=== PATIENT | female | born 1975 | race Caucasian/White ===

== ENCOUNTER 2017-04-11 17:17 | Emergency (ER) | payer OTHER ==
[~2017-04-11] VITALS: Ht 172.7 cm; Wt 84.5 kg
[~2017-04-11 17:17] MED LIST: AMIT50TA27 PO; CALC500T62 PO; DIVA500T52 PO; GABA-529 PO; HYD50 PO; IBUP-1547 PO; LEVO50CA2 PO; LORA1TAB3 PO; RISP1 PO; SERT100T12 PO
[2017-04-11] MEDS ORDERED: FLUO15CR2 TP (17:42)
[2017-04-11] MEDS ORDERED: DIPH25 PO (17:42)
[2017-04-11] MEDS ORDERED: CLOM25 PO (17:42)
[2017-04-11] MEDS ORDERED: CHLO25 PO (17:42)
[2017-04-11] MEDS ORDERED: GABA-529 PO (17:46)
[2017-04-11] MEDS ORDERED: LEVO75 PO (17:46)
[2017-04-11] MEDS ORDERED: MUPIROCIN CALCIUM 2% 22 GM OINTMENT TP ONE (19:15)
[2017-04-11 20:19] VITALS: BP 121/80
== END 2017-04-11 20:20 | disposition home or self-care (01) ==
LOC: EMS 17:18
DX: L89.893 Pressure ulcer of other site, stage 3 (principal); L89.892 Pressure ulcer of other site, stage 2; E03.9 Hypothyroidism, unspecified; Z91.018 Allergy to other foods
CPT/HCPCS: 11042; 99284

== ENCOUNTER 2017-04-15 19:18 | Emergency (ER) | payer OTHER ==
[~2017-04-15] VITALS: Ht 170.2 cm; Wt 84.0 kg
[~2017-04-15 19:18] MED LIST changes: +CHLO25 PO; +CLOM25 PO; +DIPH25 PO; +FLUO15CR2 TP; -IBUP-1547 PO; -LEVO50CA2 PO; +LEVO75 PO
[2017-04-15 19:59] VITALS: BP 118/80
== END 2017-04-15 20:37 | disposition home or self-care (01) ==
LOC: EMS 19:19
DX: L89.892 Pressure ulcer of other site, stage 2 (principal); E03.9 Hypothyroidism, unspecified; Z91.018 Allergy to other foods; Z79.899 Other long term (current) drug therapy
CPT/HCPCS: 99283

== ENCOUNTER 2017-10-02 10:15 | Emergency (ER) | payer OTHER ==
[~2017-10-02] VITALS: Ht 177.8 cm; Wt 77.2 kg
[2017-10-02 10:59] VITALS: BP 127/71
== END 2017-10-02 11:59 | disposition home or self-care (01) ==
LOC: EMS 10:16
DX: B86 Scabies (principal); I10 Essential (primary) hypertension; E03.9 Hypothyroidism, unspecified; Z91.018 Allergy to other foods
CPT/HCPCS: 99283

== ENCOUNTER 2021-07-06 19:51 | Inpatient (IN) | payer OTHER ==
[~2021-07-06] VITALS: Ht 167.6 cm; Wt 74.5 kg
[~2021-07-06 19:51] MED LIST changes: -CHLO25 PO; +CHLO25TA69 PO; +GABA-1216 PO; +LORA-1000 PO; -LORA1TAB3 PO; -RISP1 PO; +RISP1TAB48 PO; +SERT-440 PO; -SERT100T12 PO
[2021-07-06] MEDS ORDERED: DOCU-270 PO (20:25)
[2021-07-06] MEDS ORDERED: DIVA-112 PO (20:25)
[2021-07-06] MEDS ORDERED: ZINC220C14 PO (20:25)
[2021-07-06] MEDS ORDERED: LEVO100 PO (20:25)
[2021-07-06] MEDS ORDERED: LACT30L PO (20:25)
[2021-07-06 23:05] LABS: HEMATOCRIT 42.9 % (36-46); HEMOGLOBIN 13.9 g/dL (12.0-16.0); MEAN CORPUSCULAR HEMOGLOBIN 30.7 pg (26.0-34.0); MEAN CORPUSCULAR HGB CONC 32.5 G/dL (31.0-37.0); MEAN CORPUSCULAR VOLUME 94 fL (80-100); PLATELET COUNT (AUTO) 294 K/uL (150-450); RED BLOOD CELL COUNT(AUTO) 4.55 MIL/uL (4.00-5.20); RED CELL DISTRIBUTION WIDTH 14.8 % (11.5-14.5)
[2021-07-06 23:21] LABS: ANION GAP 15 mmol/L (8-16); CALCIUM, TOTAL 8.6 mg/dL (8.8-10.5); CARBON DIOXIDE 22 mmol/L (22-29); CHLORIDE 102 mmol/L (98-107); CREATININE 1.51 mg/dL (0.60-1.30); GLOMERULAR FILTR. RATE CALC 37 mL/min (>60); GLUCOSE,RANDOM 249 mg/dL (70-110); POTASSIUM 4.2 mmol/L (3.5-5.1); SODIUM SERUM 139 mmol/L (136-145); UREA NITROGEN, BLOOD 20 mg/dL (7-18)
[2021-07-06 23:24] LABS: INR 1.4 (0.9-1.1); PROTHROMBIN TIME 14.9 SEC (9.4-11.6)
[2021-07-06 23:38] LABS: ALANINE AMINOTRANSFERASE 50 U/L (12-78); ALKALINE PHOSPHATASE 120 U/L (46-116); ASPARTATE AMINOTRANSFERASE 26 U/L (15-37); BILIRUBIN,TOTAL 0.9 mg/dL (0.1-1.0); HCG,QUANTITATIVE < 1 mIU/mL (0-6); LIPASE 41 U/L (73-393); TOTAL PROTEIN, SERUM 6.9 g/dL (6.4-8.2)
[2021-07-06 23:58] LABS: BAND NEUTROPHILS % (MANUAL) 6 % (0-5); LYMPHOCYTES % (MANUAL) 5 % (22-44); MONOCYTES % (MANUAL) 30 % (2-9); SEGMENTED NEUTROPHILS % 59 % (40-70)
[2021-07-07] MEDS ORDERED: SODIUM CHLORIDE 0.9% 500 ML IV ONE
[2021-07-07] MEDS ORDERED: MetroNIDAZOLE 500 MG/NACL 100 ML IV ONE (02:45)
[2021-07-07] MEDS ORDERED: CIPROFLOXACIN 400 MG/D5% WATER 200 ML IV ONE (02:45)
[2021-07-07 03:11] LABS: APPEARANCE,URINE CLOUDY (CLEAR); GLUCOSE, URINE (UA) NEGATIVE (NEGATIVE); KETONES,URINE TRACE mg/dL (NEGATIVE); LEUKOCYTE ESTERASE ,URINE SMALL (NEGATIVE); NITRATE,URINE POSITIVE (NEGATIVE); OCCULT BLOOD,URINE TRACE (NEGATIVE); PROTEIN,URINE NEGATIVE (NEGATIVE)
[2021-07-07 03:28] LABS: BILIRUBIN,URINE PRELIM. POSITIVE (NEGATIVE)
[2021-07-07] MEDS ORDERED: DEXTROSE 50%-WATER 25 GM/50 ML SYRINGE IVP PRN (03:30)
[2021-07-07] MEDS ORDERED: SODIUM CHLORIDE 0.9% 1,250 ML IV ONE (03:30)
[2021-07-07] MEDS ORDERED: *CLINICAL-LEVOFLOXACIN IVPB DOSING CLINICAL ONE (03:30)
[2021-07-07] MEDS ORDERED: INSULIN LISPRO 100 UNITS/ML SQ PRN (03:30)
[2021-07-07 03:38] LABS: AMORPHOUS SEDIMENT,UR Few /LPF (None Seen); BACTERIA,URINE Moderate /HPF (None Seen); RBC,URINE 0-2 /HPF (0-2); SQUAMOUS EPITHELIAL CELL,UR Few /LPF (None Seen)
[2021-07-07 03:43] LABS: CALCIUM OXALATE CRYSTALS,UR Few /LPF (None Seen)
[2021-07-07] MEDS: SODIUM CHLORIDE 0.9% 1,000 ML IV SCH ×2 (05:14→15:14)
[2021-07-07] MEDS: LEVOTHYROXINE SODIUM 100 MCG TABLET PO SCH (06:13)
[2021-07-07 06:43] LABS: COVID AG,FIA SOURCE NASOPHARYNGEAL
[2021-07-07 09:15] VITALS: BP 111/64
[2021-07-07] MEDS: MetroNIDAZOLE 500 MG/NACL 100 ML IV SCH ×2 (11:39→20:04)
[2021-07-07 14:57] VITALS: BP 123/75
[2021-07-07 15:21] LABS: GLUCOMETER DEV NAME(LOC) 6N.1; GLUCOSE,POINT OF CARE 71 MG/DL (70-110)
[2021-07-07 15:22] LABS: GLUCOMETER DEV NAME(LOC) 6N.1; GLUCOSE,POINT OF CARE 78 MG/DL (70-110)
[2021-07-07] MEDS: PANTOPRAZOLE SODIUM 40 MG/VIAL IVP SCH (15:41)
[2021-07-07] MEDS ORDERED: LEVOFLOXACIN 500 MG/D5% WATER 100 ML IV SCH (16:00)
[2021-07-07 16:27] LABS: HEMATOCRIT 39.2 % (36-46); HEMOGLOBIN 12.6 g/dL (12.0-16.0); MEAN CORPUSCULAR HEMOGLOBIN 30.5 pg (26.0-34.0); MEAN CORPUSCULAR HGB CONC 32.2 G/dL (31.0-37.0); MEAN CORPUSCULAR VOLUME 95 fL (80-100); RED BLOOD CELL COUNT(AUTO) 4.15 MIL/uL (4.00-5.20); RED CELL DISTRIBUTION WIDTH 14.8 % (11.5-14.5)
[2021-07-07 16:37] LABS: ALANINE AMINOTRANSFERASE 34 U/L (12-78); ALBUMIN 2.4 g/dL (3.4-5.0); ALKALINE PHOSPHATASE 90 U/L (46-116); ANION GAP 9 mmol/L (8-16); ASPARTATE AMINOTRANSFERASE 17 U/L (15-37); BILIRUBIN,TOTAL 0.5 mg/dL (0.1-1.0); CALCIUM, TOTAL 7.8 mg/dL (8.8-10.5); CARBON DIOXIDE 23 mmol/L (22-29); CHLORIDE 106 mmol/L (98-107); CREATININE 0.84 mg/dL (0.60-1.30); GLOMERULAR FILTR. RATE CALC > 60 mL/min (>60); GLUCOSE,RANDOM 106 mg/dL (70-110); POTASSIUM 3.7 mmol/L (3.5-5.1); SODIUM SERUM 138 mmol/L (136-145); TOTAL PROTEIN, SERUM 5.5 g/dL (6.4-8.2); UREA NITROGEN, BLOOD 13 mg/dL (7-18)
[2021-07-07 16:42] LABS: PLATELET COUNT (AUTO) 214 K/uL (150-450)
[2021-07-07 16:45] LABS: BAND NEUTROPHILS % (MANUAL) 17 % (0-5); BLASTS, MANUAL % 1 (0-0); LYMPHOCYTES % (MANUAL) 14 % (22-44); MONOCYTES % (MANUAL) 23 % (2-9); SEGMENTED NEUTROPHILS % 45 % (40-70)
[2021-07-07 16:47] LABS: WBC MORPHOLOGY TOXIC VACUOLATION
[2021-07-07] MEDS: CefTRIAXone 1 GM/DEXTROSE 50 ML IV SCH (16:55)
[2021-07-07 17:56] LABS: GLUCOMETER DEV NAME(LOC) 6S.1; GLUCOSE,POINT OF CARE 96 MG/DL (70-110)
[2021-07-07 19:33] VITALS: BP 122/75
[2021-07-07] MEDS: LACTOBACILLUS ACIDOPHILUS/BULGARICUS TABLET PO SCH (20:04)
[2021-07-08 00:09] LABS: GLUCOMETER DEV NAME(LOC) 6N.1; GLUCOSE,POINT OF CARE 113 MG/DL (70-110)
[2021-07-08] MEDS ORDERED: ACETAMINOPHEN 325 MG TABLET PO PRN (00:45)
[2021-07-08] MEDS: SODIUM CHLORIDE 0.9% 1,000 ML IV SCH ×2 (03:47→09:54)
[2021-07-08] MEDS: MetroNIDAZOLE 500 MG/NACL 100 ML IV SCH ×3 (03:47→19:47)
[2021-07-08 04:26] VITALS: BP 127/82
[2021-07-08] MEDS: LEVOTHYROXINE SODIUM 100 MCG TABLET PO SCH (06:20)
[2021-07-08 06:49] LABS: HEMATOCRIT 42.9 % (36-46); MEAN CORPUSCULAR HEMOGLOBIN 30.8 pg (26.0-34.0); MEAN CORPUSCULAR HGB CONC 32.6 G/dL (31.0-37.0); MEAN CORPUSCULAR VOLUME 95 fL (80-100); PLATELET COUNT (AUTO) 234 K/uL (150-450); RED BLOOD CELL COUNT(AUTO) 4.53 MIL/uL (4.00-5.20); RED CELL DISTRIBUTION WIDTH 14.8 % (11.5-14.5)
[2021-07-08 07:04] LABS: GLUCOMETER DEV NAME(LOC) 6N.1; GLUCOSE,POINT OF CARE 81 MG/DL (70-110)
[2021-07-08 07:17] LABS: ALANINE AMINOTRANSFERASE 37 U/L (12-78); ALBUMIN 2.4 g/dL (3.4-5.0); ALKALINE PHOSPHATASE 96 U/L (46-116); ANION GAP 8 mmol/L (8-16); ASPARTATE AMINOTRANSFERASE 25 U/L (15-37); BILIRUBIN,TOTAL 0.4 mg/dL (0.1-1.0); CARBON DIOXIDE 25 mmol/L (22-29); CHLORIDE 107 mmol/L (98-107); CREATININE 0.91 mg/dL (0.60-1.30); GLOMERULAR FILTR. RATE CALC > 60 mL/min (>60); GLUCOSE,RANDOM 103 mg/dL (70-110); POTASSIUM 4.3 mmol/L (3.5-5.1); SODIUM SERUM 140 mmol/L (136-145); TOTAL PROTEIN, SERUM 5.9 g/dL (6.4-8.2); UREA NITROGEN, BLOOD 8 mg/dL (7-18)
[2021-07-08] MEDS: LACTOBACILLUS ACIDOPHILUS/BULGARICUS TABLET PO SCH ×2 (08:14→20:14)
[2021-07-08] MEDS: PANTOPRAZOLE SODIUM 40 MG/VIAL IVP SCH (08:14)
[2021-07-08 08:41] VITALS: BP 119/78
[2021-07-08 08:48] LABS: BAND NEUTROPHILS % (MANUAL) 7 % (0-5); EOSINOPHILS % (MANUAL) 1 % (1-6); LYMPHOCYTES % (MANUAL) 29 % (22-44); MONOCYTES % (MANUAL) 5 % (2-9); SEGMENTED NEUTROPHILS % 58 % (40-70)
[2021-07-08 12:02] LABS: GLUCOMETER DEV NAME(LOC) 6N.1; GLUCOSE,POINT OF CARE 76 MG/DL (70-110)
[2021-07-08 15:55] VITALS: BP 124/59
[2021-07-08] MEDS: CefTRIAXone 1 GM/DEXTROSE 50 ML IV SCH (16:29)
[2021-07-08 18:39] LABS: GLUCOMETER DEV NAME(LOC) 6N.1; GLUCOSE,POINT OF CARE 104 MG/DL (70-110)
[2021-07-08 20:09] VITALS: BP 127/37
[2021-07-08 20:36] VITALS: BP 143/78
[2021-07-08 23:34] LABS: GLUCOMETER DEV NAME(LOC) 6S.1; GLUCOSE,POINT OF CARE 162 MG/DL (70-110)
[2021-07-09] MEDS: MetroNIDAZOLE 500 MG/NACL 100 ML IV SCH ×2 (03:38→12:55)
[2021-07-09] MEDS: SODIUM CHLORIDE 0.9% 1,000 ML IV SCH ×3 (03:38→16:38)
[2021-07-09 04:11] VITALS: BP 117/59
[2021-07-09] MEDS: LEVOTHYROXINE SODIUM 100 MCG TABLET PO SCH (05:49)
[2021-07-09 06:13] LABS: GLUCOMETER DEV NAME(LOC) 6S.1; GLUCOSE,POINT OF CARE 92 MG/DL (70-110)
[2021-07-09 06:31] LABS: HEMATOCRIT 43.5 % (36-46); HEMOGLOBIN 14.2 g/dL (12.0-16.0); MEAN CORPUSCULAR HEMOGLOBIN 30.6 pg (26.0-34.0); MEAN CORPUSCULAR HGB CONC 32.7 G/dL (31.0-37.0); MEAN CORPUSCULAR VOLUME 94 fL (80-100); PLATELET COUNT (AUTO) 265 K/uL (150-450); RED BLOOD CELL COUNT(AUTO) 4.64 MIL/uL (4.00-5.20); RED CELL DISTRIBUTION WIDTH 14.7 % (11.5-14.5)
[2021-07-09 06:51] LABS: ALANINE AMINOTRANSFERASE 32 U/L (12-78); ALBUMIN 2.4 g/dL (3.4-5.0); ALKALINE PHOSPHATASE 98 U/L (46-116); ANION GAP 8 mmol/L (8-16); ASPARTATE AMINOTRANSFERASE 22 U/L (15-37); BILIRUBIN,TOTAL 0.5 mg/dL (0.1-1.0); CALCIUM, TOTAL 7.8 mg/dL (8.8-10.5); CARBON DIOXIDE 22 mmol/L (22-29); CHLORIDE 108 mmol/L (98-107); CREATININE 0.88 mg/dL (0.60-1.30); GLOMERULAR FILTR. RATE CALC > 60 mL/min (>60); GLUCOSE,RANDOM 100 mg/dL (70-110); POTASSIUM 3.1 mmol/L (3.5-5.1); SODIUM SERUM 138 mmol/L (136-145); TOTAL PROTEIN, SERUM 5.7 g/dL (6.4-8.2); UREA NITROGEN, BLOOD 7 mg/dL (7-18)
[2021-07-09 07:52] VITALS: BP 100/58
[2021-07-09] MEDS: PANTOPRAZOLE SODIUM 40 MG/VIAL IVP SCH (07:59)
[2021-07-09] MEDS: LACTOBACILLUS ACIDOPHILUS/BULGARICUS TABLET PO SCH (07:59)
[2021-07-09 08:57] LABS: BAND NEUTROPHILS % (MANUAL) 7 % (0-5); LYMPHOCYTES % (MANUAL) 20 % (22-44); MONOCYTES % (MANUAL) 7 % (2-9); SEGMENTED NEUTROPHILS % 66 % (40-70)
[2021-07-09] MEDS ORDERED: POTASSIUM CHLORIDE 20 MEQ ER TABLET PO PRN (11:15)
[2021-07-09] MEDS: POTASSIUM CHL 10 MEQ/WATER 50 ML IV PRN ×3 (11:58→15:23)
[2021-07-09] MEDS ORDERED: CIPR-278 PO (14:03)
[2021-07-09] MEDS ORDERED: METR500 PO (14:03)
[2021-07-09] MEDS ORDERED: ACID1TAB8 PO (14:04)
[2021-07-09 14:46] LABS: GLUCOMETER DEV NAME(LOC) 6S.1; GLUCOSE,POINT OF CARE 87 MG/DL (70-110)
[2021-07-09 15:24] VITALS: BP 134/54
[2021-07-09] MEDS: CefTRIAXone 1 GM/DEXTROSE 50 ML IV SCH (16:38)
== END 2021-07-09 17:55 | disposition home or self-care (01) | DRG 249 ==
LOC: EMS 19:54 → 6N 07-07 04:42
PROVIDERS: ADMIT Internal Medicine; ATTEND Internal Medicine
DX: A08.4 Viral intestinal infection, unspecified (principal); R65.11 Systemic inflammatory response syndrome (SIRS) of non-infectious origin with acute organ dysfunction; N17.9 Acute kidney failure, unspecified; K52.9 Noninfective gastroenteritis and colitis, unspecified; E03.9 Hypothyroidism, unspecified; R62.50 Unspecified lack of expected normal physiological development in childhood; K59.09 Other constipation; F91.9 Conduct disorder, unspecified; I10 Essential (primary) hypertension; Z79.899 Other long term (current) drug therapy; Z85.828 Personal history of other malignant neoplasm of skin; Z91.018 Allergy to other foods; Z92.3 Personal history of irradiation; Z20.822 Contact with and (suspected) exposure to COVID-19
CPT/HCPCS: 51701; 74019; 74176; 80053; 81001; 82962; 83036; 83690; 83880; 84145; 84702; 85025; 85610; 85730; 87040; 87045; 87077; 87086; 87186; 93970; 99285; C9113; J0696; J0744; J1956; J3480; J3490; J7030